=== PATIENT | female | born 1990 | race Caucasian/White ===

== ENCOUNTER 2019-10-28 21:13 | Emergency (ER) | payer MEDICAID ==
[2019-10-28 21:32] VITALS: BP 107/68
--- NOTE | 2019-10-28 21:49 | Event Note ---
ED Screening Note Date of service: 10/28/19 Time: 21:47 ED Screening Note: Pt complains of left lower abdominal pain and wound infection states had C section 10/18/19 with [employer] maine removed from wound yesterday states purulent drainage, body aches, and chills today This initial assessment/diagnostic orders/clinical plan/treatment(s) is/are subject to change based on patients health status, clinical progression and re- assessment by fellow clinical providers in the ED. Further treatment and workup at subsequent clinical providers discretion. Patient/guardian urged not to elope from the ED as their condition may be serious if not clinically assessed and managed. Initial orders include: labs
[2019-10-28 23:14] LABS: Bacteria,Urine 1+ /HPF (Negative); Bilirubin,Urine NEG (Negative); Blood,Urine MOD (Negative); Color,Urine Yellow (Yellow); Mucus,Urine FEW /HPF; Protein,Urine <15 mg/dL mg/dL (Negative); Urobilinogen,Urine < 2.0 mg/dL (<2.0)
[2019-10-28 23:20] LABS: Basophils % (Auto) 0.5 % (0.0-1.8); Eosinophils # (Auto) 0.4 K/mm3 (0.0-0.4); Eosinophils % (Auto) 6.8 % (0.0-4.3); Hematocrit 31.2 % (30.3-42.9); Hemoglobin 10.2 gm/dl (10.1-14.3); Lymphocytes # (Auto) 2.1 K/mm3 (1.2-5.4); Lymphocytes % (Auto) 38.2 % (13.4-35.0); Mean Corpuscular HGB Conc 33 % (30-34); Mean Corpuscular Volume 83 fl (79-97); Monocytes # (Auto) 0.6 K/mm3 (0.0-0.8); Monocytes % (Auto) 10.6 % (0.0-7.3); Platelet Count 482 K/mm3 (140-440); Red Blood Count 3.78 M/mm3 (3.65-5.03); Red Cell Distribution Width 14.8 % (13.2-15.2)
[2019-10-28 23:43] LABS: Albumin 3.9 g/dL (3.9-5); BUN/Creatinine Ratio 20; Blood Urea Nitrogen 12 mg/dL (7-17); Calcium 9.5 mg/dL (8.4-10.2); Hemolysis Index 133
[2019-10-28 23:50] LABS: Alanine Aminotransferase 9 units/L (7-56)
--- NOTE | 2019-10-29 00:28 | Emergency Department Report ---
ED Abdominal Pain HPI - General Chief Complaint: Laceration/Recheck/Suture Stated Complaint: POST C SECTION COMP Time Seen by Provider: 10/28/19 21:45 Source: patient Mode of arrival: Ambulatory Limitations: No Limitations - History of Present Illness Initial Comments: Patient is a 29-year-old female that presents emergency room with complaints of lower abdominal pain. Patient states she had a on October 18, 2019 and had her maine removed yesterday. Patient states after maine removed the left side of her incision site opened up and pus started draining. Patient states the pain is a burning pain. Patient states is an 8 out of 10. They states it is better with rest and worse with movement and palpation. Patient denies fever and chills. Patient states her abdominal pain is just at the surgical site. MD Complaint: abdominal pain -: Sudden Location: suprapubic Radiation: none Migration to: no migration Severity: severe Severity scale (0 -10): 8 Quality: burning Consistency: constant Improves With: rest Worsens With: movement, other Context: recent surgery/procedure Associated Symptoms: denies other symptoms. denies: nausea, vomiting, diarrhea, fever, chills, constipation, dysuria, hematemesis, hematochezia, melena, hematuria, anorexia - Related Data Previous Rx's Medication Instructions Recorded Last Taken Type Vits96/Iron Fum/Folic 1 each PO QDAY #30 tablet 11/19/13 03/27/14 23:00 Rx [ Tablet] 1 tab Docusate Sodium [Colace CAP] 100 mg PO BID PRN #60 capsule 04/14/15 Unknown Rx Ibuprofen [Motrin 600 MG tab] 600 mg PO Q6H PRN #50 tablet 04/14/15 Unknown Rx Ferrous Sulfate [Feosol 325 MG tab] 325 mg PO BID #60 tablet 10/20/19 Unknown Rx HYDROcodone/APAP 5-325 [[place] 1 each PO Q6H PRN #30 tablet 10/20/19 Unknown Rx 5-325 mg TAB] Ibuprofen [Motrin 800 MG tab] 800 mg PO Q6H PRN #30 tablet 10/20/19 Unknown Rx Sulfamethoxazole/Trimethoprim 1 each PO BID 10 Days #20 tablet 10/29/19 Unknown Rx [Bactrim DS TAB] cephALEXin [Keflex] 500 mg PO Q8HR 10 Days capsule 10/29/19 Unknown Rx oxyCODONE /ACETAMINOPHEN [Percocet 1 tab PO Q4H PRN #10 tablet 10/29/19 Unknown Rx 5/325 mg] Allergies Allergy/AdvReac Type Severity Reaction Status Date / Time No Known Allergies Allergy Verified 04/12/15 10:25 ED Review of Systems ROS: Stated complaint: POST C SECTION COMP Other details as noted in HPI Constitutional: denies: chills, fever Eyes: denies: eye pain, eye discharge, vision change ENT: denies: ear pain, throat pain Respiratory: denies: cough, shortness of breath, wheezing Cardiovascular: denies: chest pain, palpitations Endocrine: no symptoms reported Gastrointestinal: abdominal pain. denies: nausea, diarrhea Genitourinary: denies: urgency, dysuria, discharge Musculoskeletal: denies: back pain, joint swelling, arthralgia Skin: denies: rash, lesions Neurological: denies: headache, weakness, paresthesias Psychiatric: denies: anxiety, depression Hematological/Lymphatic: denies: easy bleeding, easy bruising ED Past Medical Hx - Past Medical History Previous Medical History?: No Hx Hypertension: No Hx Congestive Heart Failure: No Hx Diabetes: No Hx Deep Vein Thrombosis: No Hx Renal Disease: No Hx Sickle Cell Disease: No Hx Seizures: No Hx Asthma: No Hx COPD: No Hx HIV: No Additional medical history: none - Surgical History Past Surgical History?: Yes Additional Surgical History: Csection X3 - Family History Family history: no significant - Social History Smoking Status: Never Smoker Substance Use Type: None - Medications Home Medications: Home Medications Medication Instructions Recorded Confirmed Last Taken Type Vits96/Iron Fum/Folic 1 each PO QDAY #30 tablet 11/19/13 04/12/15 03/27/14 23:00 Rx [ Tablet] 1 tab Docusate Sodium [Colace CAP] 100 mg PO BID PRN #60 capsule 04/14/15 Unknown Rx Ibuprofen [Motrin 600 MG tab] 600 mg PO Q6H PRN #50 tablet 04/14/15 Unknown Rx Ferrous Sulfate [Feosol 325 MG tab] 325 mg PO BID #60 tablet 10/20/19 Unknown Rx HYDROcodone/APAP 5-325 [[place] 1 each PO Q6H PRN #30 tablet 10/20/19 Unknown Rx 5-325 mg TAB] Ibuprofen [Motrin 800 MG tab] 800 mg PO Q6H PRN #30 tablet 10/20/19 Unknown Rx Sulfamethoxazole/Trimethoprim 1 each PO BID 10 Days #20 tablet 10/29/19 Unknown Rx [Bactrim DS TAB] cephALEXin [Keflex] 500 mg PO Q8HR 10 Days capsule 10/29/19 Unknown Rx oxyCODONE /ACETAMINOPHEN [Percocet 1 tab PO Q4H PRN #10 tablet 10/29/19 Unknown Rx 5/325 mg] ED Physical Exam - General Limitations: No Limitations General appearance: alert, in no apparent distress - Head Head exam: Present: atraumatic, normocephalic - Eye Eye exam: Present: normal appearance - ENT ENT exam: Present: mucous membranes moist - Neck Neck exam: Present: normal inspection - Respiratory Respiratory exam: Present: normal lung sounds bilaterally. Absent: respiratory distress - Cardiovascular Cardiovascular Exam: Present: regular rate, normal rhythm. Absent: systolic murmur, diastolic murmur, rubs, gallop - GI/Abdominal GI/Abdominal exam: Present: soft, tenderness (Suprapubic tenderness noticed. Tenderness noted to the left aspect of her site. Open area noted with a purulent discharge.), normal bowel sounds. Absent: distended, guarding, rebou nd - Rectal Rectal exam: Present: deferred - Extremities Exam Extremities exam: Present: normal inspection - Back Exam Back exam: Present: normal inspection - Neurological Exam Neurological exam: Present: alert, oriented X3 - Psychiatric Psychiatric exam: Present: normal affect, normal mood - Skin Skin exam: Present: warm, dry, intact, normal color. Absent: rash ED Course Vital Signs 10/28/19 21:30 Temperature 98.9 F Pulse Rate 86 Respiratory 18 Rate Blood Pressure 107/68 O2 Sat by Pulse 98 Oximetry - Reevaluation(s) Reevaluation #1: I discussed all results and clinical findings with patient. I discussed plan of care with patient. Patient agrees with plan of care. Patient is stable for discharge. Patient will be discharged home. Patient given discharge instructions. Patient voiced understanding of discharge instructions. 10/29/19 01:06 - Consultations Consultation #1: I discussed case with the patient's STORE ASSISTANT, Dr. Brown. Dr. Brown recommends oral antibiotics and discharged home. 10/29/19 01:04 ED Medical Decision Making - Lab Data Result diagrams: 10/28/19 23:04 10/28/19 23:04 - Medical Decision Making Patient is a 29-year-old female that presents emergency room with complaints of site pain. Patient had her maine removed recently and in the left lateral aspect of the site opened up. Site is tender to touch and patient describes it as a burning pain. Clinically I believe this patient is having a dehiscing of the wound and does not have an active infection. However I discussed the case with the patient's personal STORE ASSISTANT, Dr. Brown and she recommends oral antibiotics and discharge home. Patient's labs are essentially unremarkable. - Differential Diagnosis Cellulitis, surgical wound infection, dehiscing Critical care attestation.: If time is entered above; I have spent that time in minutes in the direct care of this critically ill patient, excluding procedure time. ED Disposition Clinical Impression: Wound dehiscence, , section wound complications Abdominal pain Qualifiers: Abdominal location: lower abdomen, unspecified Qualified Code(s): R10.30 - Lower abdominal pain, unspecified Disposition: DC-01 TO HOME OR SELFCARE Is pt being admited?: No Does the pt Need Aspirin: No Condition: Stable Instructions: Surgical Site Infections (ED), Wound Healing and Your Diet (ED), Wound Dehiscence (ED) Additional Instructions: Patient to follow-up with primary care in 2 to 3 days. Patient to follow-up with STORE ASSISTANT in 2 to 3 days. Patient to rest. Patient to increase water. Patient to avoid strenuous exercise or heavy lifting until cleared by STORE ASSISTANT. Patient to take Tylenol or ibuprofen as needed for pain. Patient to take meds as directed. Patient to return to the ER if condition worsens, changes or new symptoms arise. Prescriptions: Sulfamethoxazole/Trimethoprim [Bactrim DS TAB] 1 each PO BID 10 Days #20 tablet cephALEXin [Keflex] 500 mg PO Q8HR 10 Days capsule oxyCODONE /ACETAMINOPHEN [Percocet 5/325 mg] 1 tab PO Q4H PRN #10 tablet PRN Reason: Pain , Severe (7-10) Referrals: TIANNA BROWN MD [Staff Physician] - 2-3 Days FOLEY ELIEZER TORIBIO MD [Primary Care Provider] - 2-3 Days Time of Disposition: 01:18
[2019-10-29] MEDS ORDERED: CLINDAMYCIN 150 MG/ML VIAL 6 ML IM ONE (01:14)
== END 2019-10-29 02:38 | disposition home or self-care (01) ==
LOC: ED 21:13
DX: O90.89 Other complications of the puerperium, not elsewhere classified (principal); R10.30 Lower abdominal pain, unspecified; Z79.899 Other long term (current) drug therapy; Z98.890 Other specified postprocedural states
CPT/HCPCS: 36415; 80053; 81001; 83690; 85025; 87086; 96372; 99283

== ENCOUNTER 2021-03-10 17:17 | Emergency (ER) | payer MEDICAID ==
[2021-03-10 17:45] VITALS: BP 117/77
[2021-03-10 20:24] LABS: Basophils % (Auto) 0.5 % (0.0-1.8); Eosinophils # (Auto) 0.1 K/mm3 (0.0-0.4); Eosinophils % (Auto) 2.1 % (0.0-4.3); Hemoglobin 12.6 gm/dl (10.1-14.3); Lymphocytes # (Auto) 2.1 K/mm3 (1.2-5.4); Lymphocytes % (Auto) 30.7 % (13.4-35.0); Monocytes # (Auto) 0.5 K/mm3 (0.0-0.8)
[2021-03-10 20:42] LABS: Alanine Aminotransferase 9 units/L (7-56); Albumin 3.8 g/dL (3.9-5); Blood Urea Nitrogen 8 mg/dL (7-17); Calcium 9.6 mg/dL (8.4-10.2); Hemolysis Index 10
[2021-03-10 20:45] LABS: BUN/Creatinine Ratio 16
[2021-03-10 20:49] LABS: Hematocrit 38.5 % (30.3-42.9); Mean Corpuscular HGB Conc 33 % (30-34); Mean Corpuscular Volume 85 fl (79-97); Platelet Count 310 K/mm3 (140-440); Red Blood Count 4.53 M/mm3 (3.65-5.03); Red Cell Distribution Width 14.5 % (13.2-15.2)
[2021-03-10] MEDS ORDERED: LIDOCAINE 2% UROJECT 10 ML JELLY UR ONE ×2 (21:08→23:20)
[2021-03-10 21:59] LABS: Bacteria,Urine 1+ /HPF (Negative); Bilirubin,Urine NEG (Negative); Blood,Urine MOD (Negative); Color,Urine Yellow (Yellow); Hyaline Casts,Urine 1 /LPF; Mucus,Urine FEW /HPF; Protein,Urine <15 mg/dL mg/dL (Negative); Urobilinogen,Urine < 2.0 mg/dL (<2.0)
--- NOTE | 2021-03-11 00:19 | Emergency Department Report ---
ED General Adult HPI - General Chief complaint: GI Bleed Stated complaint: BLOOD IN STOOL Source: patient, family Mode of arrival: Ambulatory Limitations: Language Barrier - History of Present Illness Initial comments: Patient is a 31-year-old [place] female with no past medical history who presents to the ED with complaint of acute onset persistent severe rectal pain, rectal bleeding with each bowel movement and a sensation of soft tissue swelling on her rectum for the last 1 week. Patient states that each time she has the urge to have a bowel movement she is scared because of rectal pain. Patient admits to having hard stools after pushing for a long time. Patient denies nausea, vomiting, abdominal pain, lightheadedness, dizziness, syncope, vaginal bleeding, vaginal discharge, chest pain, shortness of breath, fever and chills or traumatic injury. MD Complaint: Rectal pain; rectal bleeding; suspected hemorrhoids -: Sudden, week(s) (1) Location: buttocks (rectal) Radiation: non-radiation Severity scale (0 -10): 7 Quality: aching, sharp Consistency: constant Improves with: none Worsens with: other (Bowel movement) Associated Symptoms: denies other symptoms. denies: confusion, chest pain, cough, diaphoresis, fever/chills, headaches, malaise, nausea/vomiting, rash, seizure, shortness of breath, syncope Treatments Prior to Arrival: none - Related Data Previous Rx's Medication Instructions Recorded Last Taken Type Vits96/Iron Fum/Folic 1 each PO QDAY #30 tablet 11/19/13 03/27/14 23:00 Rx [ Tablet] 1 tab Docusate Sodium [Colace CAP] 100 mg PO BID PRN #60 capsule 04/14/15 Unknown Rx Ibuprofen [Motrin 600 MG tab] 600 mg PO Q6H PRN #50 tablet 04/14/15 Unknown Rx Ferrous Sulfate [Feosol 325 MG tab] 325 mg PO BID #60 tablet 10/20/19 Unknown Rx HYDROcodone/APAP 5-325 [[place] 1 each PO Q6H PRN #30 tablet 10/20/19 Unknown Rx 5-325 mg TAB] Sulfamethoxazole/Trimethoprim 1 each PO BID 10 Days #20 tablet 10/29/19 Unknown Rx [Bactrim DS TAB] cephALEXin [Keflex] 500 mg PO Q8HR 10 Days capsule 02/16/20 Unknown Rx oxyCODONE /ACETAMINOPHEN [Percocet 1 tab PO Q4H PRN #10 tablet 10/29/19 Unknown Rx 5/325 mg] Dibucaine 1% [Nupercainal] [address] TID PRN #1 tube 03/11/21 Unknown Rx Hydrocortisone [Anusol-Hc 2.5% TOP 30 gm RC Q12H PRN #1 cream..g. 03/11/21 Unknown Rx CREAM] Ibuprofen [Motrin 800 MG tab] 800 mg PO Q6H PRN #30 tablet 03/11/21 Unknown Rx Allergies Allergy/AdvReac Type Severity Reaction Status Date / Time No Known Allergies Allergy Verified 03/10/21 17:44 ED Review of Systems ROS: Stated complaint: BLOOD IN STOOL Other details as noted in HPI Constitutional: denies: chills, fever Eyes: denies: eye pain, eye discharge, vision change ENT: denies: ear pain, throat pain Respiratory: denies: cough, shortness of breath, wheezing Cardiovascular: denies: chest pain, palpitations Endocrine: no symptoms reported Gastrointestinal: other (Rectal pain and rectal bleeding). denies: abdominal pain, nausea, diarrhea Genitourinary: denies: urgency, dysuria, discharge Musculoskeletal: denies: back pain, joint swelling, arthralgia Skin: denies: rash, lesions Neurological: denies: headache, weakness, paresthesias Psychiatric: denies: anxiety, depression Hematological/Lymphatic: denies: easy bleeding, easy bruising ED Past Medical Hx - Past Medical History Hx Hypertension: No Hx Congestive Heart Failure: No Hx Diabetes: No Hx Deep Vein Thrombosis: No Hx Renal Disease: No Hx Sickle Cell Disease: No Hx Seizures: No Hx Asthma: No Hx COPD: No Hx HIV: No Additional medical history: none - Surgical History Additional Surgical History: Csection X3 - Social History Smoking Status: Never Smoker Substance Use Type: None - Medications Home Medications: Home Medications Medication Instructions Recorded Confirmed Last Taken Type Vits96/Iron Fum/Folic 1 each PO QDAY #30 tablet 11/19/13 04/12/15 03/27/14 23:00 Rx [ Tablet] 1 tab Docusate Sodium [Colace CAP] 100 mg PO BID PRN #60 capsule 04/14/15 Unknown Rx Ibuprofen [Motrin 600 MG tab] 600 mg PO Q6H PRN #50 tablet 04/14/15 Unknown Rx Ferrous Sulfate [Feosol 325 MG tab] 325 mg PO BID #60 tablet 10/20/19 Unknown Rx HYDROcodone/APAP 5-325 [[place] 1 each PO Q6H PRN #30 tablet 10/20/19 Unknown Rx 5-325 mg TAB] Sulfamethoxazole/Trimethoprim 1 each PO BID 10 Days #20 tablet 10/29/19 Unknown Rx [Bactrim DS TAB] cephALEXin [Keflex] 500 mg PO Q8HR 10 Days capsule 10/29/19 Unknown Rx oxyCODONE /ACETAMINOPHEN [Percocet 1 tab PO Q4H PRN #10 tablet 10/29/19 Unknown Rx 5/325 mg] Dibucaine 1% [Nupercainal] [address] TID PRN #1 tube 03/11/21 Unknown Rx Hydrocortisone [Anusol-Hc 2.5% TOP 30 gm RC Q12H PRN #1 cream..g. 03/11/21 Unknown Rx CREAM] Ibuprofen [Motrin 800 MG tab] 800 mg PO Q6H PRN #30 tablet 03/11/21 Unknown Rx ED Physical Exam - General Limitations: Language Barrier General appearance: alert, in no apparent distress - Head Head exam: Present: atraumatic, normocephalic, normal inspection - Eye Eye exam: Present: normal appearance, PERRL, EOMI Pupils: Present: normal accommodation - ENT ENT exam: Present: normal exam, normal orophraynx, mucous membranes moist, TM's normal bilaterally, normal external ear exam - Neck Neck exam: Present: normal inspection, full ROM - Respiratory Respiratory exam: Present: normal lung sounds bilaterally. Absent: respiratory distress, wheezes, rales, rhonchi, chest wall tenderness, accessory muscle use, decreased breath sounds, prolonged expiratory, other - Cardiovascular Cardiovascular Exam: Present: regular rate, normal rhythm, normal heart sounds. Absent: systolic murmur, diastolic murmur, rubs, gallop - GI/Abdominal GI/Abdominal exam: Present: soft, normal bowel sounds. Absent: tenderness, guar ding, rebound, organomegaly, mass, bruit - Rectal Rectal exam: Present: normal rectal tone, hemorrhoids (Tender external hemorrhoids), tenderness (Palpable external rectal tenderness due to severely tender external hemorrhoids), other (Female ED air conditioning technician housesmith Ms. Kolb present during the rectal exam). Absent: black stool, bloody stool, fecal impaction - Extremities Exam Extremities exam: Present: normal inspection, full ROM, normal capillary refill - Back Exam Back exam: Present: normal inspection, full ROM. Absent: tenderness, CVA tenderness (R), CVA tenderness (L), muscle spasm, paraspinal tenderness, vertebral tenderness - Neurological Exam Neurological exam: Present: alert, oriented X3, CN II-XII intact, normal gait, reflexes normal - Psychiatric Psychiatric exam: Present: normal affect, normal mood - Skin Skin exam: Present: warm, dry, intact, normal color. Absent: rash ED Course Vital Signs 03/10/21 17:44 Temperature 98.6 F Pulse Rate 73 Respiratory 20 Rate Blood Pressure 117/77 [Left] O2 Sat by Pulse 100 Oximetry ED Medical Decision Making - Lab Data Result diagrams: 03/10/21 20:08 03/10/21 20:08 - Medical Decision Making This is a 31-year-old [place] female with no past medical history who presents to the ED with complaint of acute onset persistent severe rectal pain, rectal bleeding with each bowel movement and a sensation of soft tissue swelling on her rectum for the last 1 week. Patient states that each time she has the urge to have a bowel movement she is scared because of rectal pain. Patient admits to having hard stools after pushing for a long time. In the ED, patient is alert and oriented x3 and is not in any distress. Patient was treated for pain with topical Urojet ointment applied on the rectal vault. Physical exam re veals severely tender moderate external hemorrhoid. On reevaluation, patient's pain is well controlled medications. Patient was discharged home on medications and advised to increase water intake and high-fiber diet, use sitz bath to relieve her symptoms. Patient was advised to return to the ED immediately if symptoms get worse, otherwise follow-up with her primary care physician in 5 to 7 days for reevaluation. - Differential Diagnosis Hemorrhoids; constipation; anal tears; anal fissures Critical care attestation.: If time is entered above; I have spent that time in minutes in the direct care of this critically ill patient, excluding procedure time. ED Disposition Clinical Impression: Anal or rectal pain, External hemorrhoids Disposition: TO HOME OR SELFCARE Is pt being admited?: No Does the pt Need Aspirin: No Condition: Stable Instructions: Hemorrhoids, [id number] Additional Instructions: All lab test results were reviewed and are all nonactionable. Your symptoms are due to external hemorrhoids that are painful especially with bowel movements. Therefore take medications as advised, drink plenty of fluids, increase high- fiber in your diet, follow-up with your primary care physician in 3 to 5 days for reevaluation. Return to the ED immediately if symptoms get worse. Prescriptions: Hydrocortisone [Anusol-Hc 2.5% TOP CREAM] 30 gm RC Q12H PRN #1 cream..g. PRN Reason: Hemorrhoids Ibuprofen [Motrin 800 MG tab] 800 mg PO Q6H PRN #30 tablet PRN Reason: Pain, Mild (1-3) Dibucaine 1% [Nupercainal] [address] TID PRN #1 tube PRN Reason: Rectal pain Referrals: [facility] [Provider Group] - 3-5 Days Time of Disposition: 00:19 Print Language: KYRGYZ
== END 2021-03-11 00:35 | disposition home or self-care (01) ==
LOC: ED 17:17
DX: K64.4 Residual hemorrhoidal skin tags (principal); K62.89 Other specified diseases of anus and rectum; Z79.899 Other long term (current) drug therapy; Z98.890 Other specified postprocedural states
CPT/HCPCS: 36415; 80053; 81001; 83690; 84703; 85025

== ENCOUNTER 2021-12-01 12:36 | Emergency (ER) | payer MEDICAID ==
--- NOTE | 2021-12-01 16:15 | Emergency Department Report ---
ED General Adult HPI - General Chief complaint: Nausea/Vomiting/Diarrhea Stated complaint: NEED FLUIDS/NAUSEA Time Seen by Provider: 12/01/21 15:45 Source: patient Mode of arrival: Ambulatory Limitations: No Limitations - Related Data Previous Rx's Medication Instructions Recorded Last Taken Type Vits96/Iron Fum/Folic 1 each PO QDAY #30 tablet 11/19/13 03/27/14 23:00 Rx [ Tablet] 1 tab Docusate Sodium [Colace CAP] 100 mg PO BID PRN #60 capsule 04/14/15 Unknown Rx Ibuprofen [Motrin 600 MG tab] 600 mg PO Q6H PRN #50 tablet 04/14/15 Unknown Rx Ferrous Sulfate [Feosol 325 MG tab] 325 mg PO BID #60 tablet 10/20/19 Unknown Rx HYDROcodone/APAP 5-325 [[place] 1 each PO Q6H PRN #30 tablet 10/20/19 Unknown Rx 5-325 mg TAB] Sulfamethoxazole/Trimethoprim 1 each PO BID 10 Days #20 tablet 10/29/19 Unknown Rx [Bactrim DS TAB] cephALEXin [Keflex] 500 mg PO Q8HR 10 Days capsule 10/29/19 Unknown Rx oxyCODONE /ACETAMINOPHEN [Percocet 1 tab PO Q4H PRN #10 tablet 10/29/19 Unknown Rx 5/325 mg] Dibucaine 1% [Nupercainal] 1 applicatio [place] TID PRN #1 tube 03/11/21 Unknown Rx Hydrocortisone [Anusol-Hc 2.5% TOP 30 gm RC Q12H PRN #1 cream..g. 03/11/21 Unknown Rx CREAM] Ibuprofen [Motrin 800 MG tab] 800 mg PO Q6H PRN #30 tablet 03/11/21 Unknown Rx Allergies Allergy/AdvReac Type Severity Reaction Status Date / Time No Known Allergies Allergy Verified 03/10/21 17:44 ED Review of Systems ROS: Stated complaint: NEED FLUIDS/NAUSEA Other details as noted in HPI ED Past Medical Hx - Past Medical History Hx Hypertension: No Hx Congestive Heart Failure: No Hx Diabetes: No Hx Deep Vein Thrombosis: No Hx Renal Disease: No Hx Sickle Cell Disease: No Hx Seizures: No Hx Asthma: No Hx COPD: No Hx HIV: No Additional medical history: none - Surgical History Additional Surgical History: Csection X3 - Social History Smoking Status: Never Smoker Substance Use Type: None - Medications Home Medications: Home Medications Medication Instructions Recorded Confirmed Last Taken Type Vits96/Iron Fum/Folic 1 each PO QDAY #30 tablet 11/19/13 04/12/15 03/27/14 23:00 Rx [ Tablet] 1 tab Docusate Sodium [Colace CAP] 100 mg PO BID PRN #60 capsule 04/14/15 Unknown Rx Ibuprofen [Motrin 600 MG tab] 600 mg PO Q6H PRN #50 tablet 04/14/15 Unknown Rx Ferrous Sulfate [Feosol 325 MG tab] 325 mg PO BID #60 tablet 10/20/19 Unknown Rx HYDROcodone/APAP 5-325 [[place] 1 each PO Q6H PRN #30 tablet 10/20/19 Unknown Rx 5-325 mg TAB] Sulfamethoxazole/Trimethoprim 1 each PO BID 10 Days #20 tablet 10/29/19 Unknown Rx [Bactrim DS TAB] cephALEXin [Keflex] 500 mg PO Q8HR 10 Days capsule 10/29/19 Unknown Rx oxyCODONE /ACETAMINOPHEN [Percocet 1 tab PO Q4H PRN #10 tablet 10/29/19 Unknown Rx 5/325 mg] Dibucaine 1% [Nupercainal] 1 applicatio [place] TID PRN #1 tube 03/11/21 Unknown Rx Hydrocortisone [Anusol-Hc 2.5% TOP 30 gm RC Q12H PRN #1 cream..g. 03/11/21 Unknown Rx CREAM] Ibuprofen [Motrin 800 MG tab] 800 mg PO Q6H PRN #30 tablet 03/11/21 Unknown Rx ED Physical Exam - General Limitations: No Limitations ED Course Vital Signs 12/01/21 13:18 Temperature 97.9 F Pulse Rate 85 Respiratory 17 Rate Blood Pressure 98/50 O2 Sat by Pulse 99 Oximetry Critical care attestation.: If time is entered above; I have spent that time in minutes in the direct care of this critically ill patient, excluding procedure time. ED Disposition Condition: Stable Referrals: PRIMARY CARE, [Primary Care Provider] - 3-5 Days
--- NOTE | 2021-12-01 16:24 | Event Note ---
Date: 12/01/21 31-year-old female presenting with a complaint of painless dehydration. No vomiting. Reports drinking tea earlier on this morning
--- NOTE | 2021-12-01 16:39 | Emergency Department Report ---
ED General Adult HPI - General Chief complaint: Nausea/Vomiting/Diarrhea Stated complaint: Dehydration Time Seen by Provider: 12/01/21 15:45 Source: patient, RN notes reviewed, old records reviewed Mode of arrival: Ambulatory Limitations: Language Barrier - History of Present Illness Initial comments: Pushto human resource manager: [id number] The patient is a 31-year-old female who is 8, para 5, LMP September 09, who presents to the ER today with complaints of painless sensation of dehydration. She had an ultrasound last month which she reports is unremar kable. The patient drank tea today without difficulty. She is taking vitamins without difficulty. She denies physical pain. She denies dysuria. She reports that she was referred to the emergency room by her PROOFREADER at [facility] with a concern of possible dehydration Today, she denies physical pain, nausea, vomiting and diarrhea. Improves with: none Worsens with: none Associated Symptoms: denies other symptoms - Related Data Previous Rx's Medication Instructions Recorded Last Taken Type Vits96/Iron Fum/Folic 1 each PO QDAY #30 tablet 11/19/13 03/27/14 23:00 Rx [ Tablet] 1 tab Docusate Sodium [Colace CAP] 100 mg PO BID PRN #60 capsule 04/14/15 Unknown Rx Ferrous Sulfate [Feosol 325 MG tab] 325 mg PO BID #60 tablet 10/20/19 Unknown Rx cephALEXin [Keflex] 500 mg PO Q8HR 10 Days capsule 10/29/19 Unknown Rx Hydrocortisone [Anusol-Hc 2.5% TOP 30 gm RC Q12H PRN #1 cream..g. 03/11/21 Unknown Rx CREAM] Doxylamine Succinate/Vit B6 1 each PO QHS PRN #30 tablet. 12/01/21 Unknown Rx [David Snyder 10-10 mg Tablet] Cari Root [Cari] 250 mg PO QID PRN #30 capsule 12/01/21 Unknown Rx Vit-Fe Fumar-FA [ 1 tab PO QDAY #30 tablet 12/01/21 Unknown Rx Vitamin] Allergies Allergy/AdvReac Type Severity Reaction Status Date / Time No Known Allergies Allergy Verified 03/10/21 17:44 ED Review of Systems ROS: Stated complaint: NEED FLUIDS/NAUSEA Other details as noted in HPI Constitutional: denies: fever Respiratory: denies: cough Cardiovascular: denies: chest pain Gastrointestinal: denies: abdominal pain Genitourinary: denies: urgency, dysuria, frequency Neurological: weakness. denies: headache ED Past Medical Hx - Past Medical History Hx Hypertension: No Hx Congestive Heart Failure: No Hx Diabetes: No Hx Deep Vein Thrombosis: No Hx Renal Disease: No Hx Sickle Cell Disease: No Hx Seizures: No Hx Asthma: No Hx COPD: No Hx HIV: No Additional medical history: none - Surgical History Additional Surgical History: Csection X3 - Social History Smoking Status: Never Smoker Substance Use Type: None - Medications Home Medications: Home Medications Medication Instructions Recorded Confirmed Last Taken Type Vits96/Iron Fum/Folic 1 each PO QDAY #30 tablet 11/19/13 04/12/15 03/27/14 23:00 Rx [ Tablet] 1 tab Docusate Sodium [Colace CAP] 100 mg PO BID PRN #60 capsule 04/14/15 Unknown Rx Ferrous Sulfate [Feosol 325 MG tab] 325 mg PO BID #60 tablet 10/20/19 Unknown Rx cephALEXin [Keflex] 500 mg PO Q8HR 10 Days capsule 10/29/19 Unknown Rx Hydrocortisone [Anusol-Hc 2.5% TOP 30 gm RC Q12H PRN #1 cream..g. 03/11/21 Unknown Rx CREAM] Doxylamine Succinate/Vit B6 1 each PO QHS PRN #30 tablet. 12/01/21 Unknown Rx [David Snyder 10-10 mg Tablet] Cari Root [Cari] 250 mg PO QID PRN #30 capsule 12/01/21 Unknown Rx Vit-Fe Fumar-FA [ 1 tab PO QDAY #30 tablet 12/01/21 Unknown Rx Vitamin] ED Physical Exam - General Limitations: No Limitations, Language Barrier, Other (Chaperoned by Loan Kinsey) General appearance: alert, in no apparent distress - Head Head exam: Present: atraumatic, normocephalic - Eye Eye exam: Present: normal appearance, EOMI. Absent: nystagmus - ENT ENT exam: Present: normal exam, normal orophraynx, mucous membranes moist, normal external ear exam - Neck Neck exam: Present: normal inspection, full ROM. Absent: tenderness, meningismus - Respiratory Respiratory exam: Present: normal lung sounds bilaterally. Absent: respiratory distress, wheezes, rales, rhonchi, stridor, decreased breath sounds - Cardiovascular Cardiovascular Exam: Present: regular rate, normal rhythm, normal heart sounds. Absent: bradycardia, tachycardia, irregular rhythm, systolic murmur, diastolic murmur, rubs, gallop - GI/Abdominal GI/Abdominal exam: Present: soft. Absent: distended, tenderness, guarding, rebound, rigid, pulsatile mass - Extremities Exam Extremities exam: Present: normal inspection, full ROM, other (2+ pulses noted in the bilateral upper and lower extremities. There is no palpable cord. negative Homans sign. Muscular compartments are soft. The pelvis is stable.). Absent: pedal edema, calf tenderness - Back Exam Back exam: Present: normal inspection, full ROM. Absent: tenderness, CVA tenderness (R), CVA tenderness (L), paraspinal tenderness, vertebral tenderness - Neurological Exam Neurological exam: Present: alert, oriented X3, normal gait, other (No facial droop. Tongue midline. Extraocular movements intact bilaterally. Facial sensation intact to light touch in V1, V2, V3 distribution bilaterally. 5 and a 5 strength in 4 extremities. Sensation intact to light touch in 4 extremities.). Absent: motor sensory deficit - Psychiatric Psychiatric exam: Present: normal affect, normal mood - Skin Skin exam: Present: warm, dry, intact, normal color. Absent: rash ED Course Vital Signs 12/01/21 13:18 Temperature 97.9 F Pulse Rate 85 Respiratory 17 Rate Blood Pressure 98/50 O2 Sat by Pulse 99 Oximetry - Reevaluation(s) Reevaluation #1: 12/01/21 17:00 Differential diagnosis, including but not limited to: Dehydration, electrolyte derangement, Assessment and plan: 31-year-old female, who is afebrile, with reassuring vital signs, with no physical pain, soft benign abdomen, ambulatory with a steady gait, GCS of 15, presenting to the ER today with a complaint of feeling dehydrated. She is not actively vomiting. She drank tea this morning without difficulty. Bedside [id number] transabdominal ultrasound confirms intrauterine , heart rate, spontaneous movement, with no obvious signs of bleeding. Patient provided consent to have a physical exam with female spooling operator present. She is not actively vomiting. We can check a basic metabolic panel and magnesium, she can continue vitamins, take as needed cari, as needed Diclegis, and follow-up with outpat ient PROOFREADER. Advance diet as tolerated, bread, rice, apples and toast She denies irritative and obstructive urinary symptoms 12/01/21 17:01 12/01/21 19:00 No active vomiting. Patient resting comfortably. Laboratory studies are essentially unremarkable. Patient may follow-up with her outpatient community service specialist ED Medical Decision Making - Lab Data Result diagrams: 12/01/21 17:10 Vital Signs 12/01/21 13:18 Temperature 97.9 F Pulse Rate 85 Respiratory 17 Rate Blood Pressure 98/50 O2 Sat by Pulse 99 Oximetry Lab Results 12/01/21 12/01/21 Range/Units 13:20 17:10 Sodium 134 L (137-145) mmol/L Potassium 4.4 (3.6-5.0) mmol/L Chloride 102.9 (98-107) mmol/L Carbon Dioxide 21 L (22-30) mmol/L Anion Gap 15 mmol/L BUN 9 (7-17) mg/dL Creatinine 0.4 L (0.6-1.2) mg/dL Estimated GFR > 60 ml/min BUN/Creatinine Ratio 23 % Glucose 81 (65-100) mg/dL POC Glucose 91 (70-105) mg/dL Calcium 9.4 (8.4-10.2) mg/dL Magnesium 1.90 (1.7-2.3) mg/dL Critical care attestation.: If time is entered above; I have spent that time in minutes in the direct care of this critically ill patient, excluding procedure time. ED Disposition Clinical Impression: Disposition: 01 HOME / SELF CARE / HOMELESS Is pt being admited?: No Does the pt Need Aspirin: No Condition: Good Additional Instructions: Bedside [id number] transabdominal ultrasound demonstrated intrauterine with spontaneous movements, and heart rate. Advance diet as tolerated. Drink plenty of fluids. Consume gentle food, advance diet, bread, rice, apples and toast. Take the nausea medications as needed, and vitamins as needed and directed. Follow-up with your community service specialist within the next week to continue outpatient care. Please have your PROOFREADER doctor contact the medical records department to obtain copies of laboratory studies to follow-up on nonemergent incidental findings. Please return to the emergency room right away with new pain, worsened pain, migration of pain, projectile vomiting, change in mental status, confusion, inability tolerate liquid feeds, new, worsened or different symptoms not present on the initial emergency room evaluation Prescriptions: Doxylamine Succinate/Vit B6 [David Snyder 10-10 mg Tablet] 1 each PO QHS PRN #30 tablet. PRN Reason: Nausea Cari Root [Cari] 250 mg PO QID PRN #30 capsule PRN Reason: Nausea Vit-Fe Fumar-FA [ Vitamin] 1 tab PO QDAY #30 tablet Referrals: [facility] [Provider Group] - 3-5 Days
[2021-12-01 17:44] LABS: Blood Urea Nitrogen 9 mg/dL (7-17); Calcium 9.4 mg/dL (8.4-10.2); Hemolysis Index 0
[2021-12-01 17:46] LABS: BUN/Creatinine Ratio 23
[2021-12-01 19:16] VITALS: BP 124/69
== END 2021-12-01 19:15 | disposition home or self-care (01) ==
LOC: ED 12:36
DX: O26.891 Other specified pregnancy related conditions, first trimester (principal); E86.0 Dehydration; Z3A.00 Weeks of gestation of pregnancy not specified
CPT/HCPCS: 36415; 80048; 82962; 83735; 99283

== ENCOUNTER 2022-04-25 00:20 | Outpatient (CLI) | payer OTHER, MEDICAID ==
[2022-04-25 00:53] VITALS: BP 108/56
[2022-04-25] MEDS ORDERED: LACTATED RINGERS 500 ML IV ONE (01:15)
--- NOTE | 2022-04-25 02:38 | Ultrasound Report ---
Limited OB ultrasound INDICATION: Leaking fluid FINDINGS: Single live intrauterine patency. HARLEY measures 11 cm and is within normal limits. hea rt rate 145 bpm. IMPRESSION: HARLEY measures 11 cm. heart rate 145 bpm Signer Name: Cuate Paulson MD Signed: 04/25/2022 2:34 AM Workstation Name: [id number]
== END 2022-04-25 02:30 | disposition home or self-care (01) ==
LOC: TRG 00:20 → APU 00:32 → TRG 02:30
PROVIDERS: ATTEND Obstetrics & Gynecology
DX: Z34.93 Encounter for supervision of normal pregnancy, unspecified, third trimester (principal); Z3A.33 33 weeks gestation of pregnancy
CPT/HCPCS: 36415; 76815; 84112

== ENCOUNTER 2022-06-03 08:34 | Inpatient (IN) | payer OTHER, MEDICAID ==
[2022-06-03] MEDS ORDERED: LACTATED RINGERS 2,000 ML ONE ×2 (08:53→09:16)
[2022-06-03] MEDS ORDERED: TERBUTALINE 1 MG/1 ML INJ ONE (09:17)
[2022-06-03 09:37] LABS: Basophils % (Auto) 0.2 % (0.0-1.8); Eosinophils % (Auto) 0.4 % (0.0-4.3); Hematocrit 29.9 % (30.3-42.9); Hemoglobin 10.3 gm/dl (10.1-14.3); Lymphocytes # (Auto) 1.7 K/mm3 (1.2-5.4); Lymphocytes % (Auto) 17.6 % (13.4-35.0); Mean Corpuscular HGB Conc 34 % (30-34); Mean Corpuscular Volume 79 fl (79-97); Monocytes # (Auto) 0.5 K/mm3 (0.0-0.8); Monocytes % (Auto) 5.6 % (0.0-7.3); Platelet Count 327 K/mm3 (140-440); Red Blood Count 3.77 M/mm3 (3.65-5.03); Red Cell Distribution Width 16.6 % (13.2-15.2)
[2022-06-03] MEDS ORDERED: LACTATED RINGERS 1,000 ML IV SCH (09:45)
[2022-06-03] MEDS ORDERED: ceFAZolin/Water 2 GM/20 ML 2 GM/20 ML SYRINGE IV NR ×2 (10:00→12:00)
[2022-06-03] MEDS ORDERED: BICITRA ORAL LIQD 30ML PO SCH (10:00)
[2022-06-03] MEDS ORDERED: METOCLOPRAMIDE 10 MG/2 ML INJ IV SCH (10:00)
[2022-06-03] MEDS ORDERED: OXYTOCIN DRIP 30 UNITS/500 ML BAG IV SCH ×3 (10:00→15:00)
[2022-06-03] MEDS ORDERED: FAMOTIDINE 20 MG/2 ML INJ IV SCH (10:00)
[2022-06-03] MEDS ORDERED: TERBUTALINE 1 MG/1 ML INJ SUB-Q PRN (10:00)
[2022-06-03] MEDS ORDERED: AMPICILLIN/NS 2 GM/100 ML 2 GM/100 ML BAG IV ONE (10:55)
[2022-06-03] MEDS ORDERED: AMPICILLIN/NS 2 GM/100 ML 2 GM/100 ML BAG IV SCH (11:00)
[2022-06-03] MEDS ORDERED: BICITRA ORAL LIQD 30ML PO ONE (11:20)
--- NOTE | 2022-06-03 11:28 | Anesthesia Day of Surgery ---
Anesthesia Day of Surgery - Day of Surgery Patient Examined: Yes Patient H&P Reviewed: Yes Patient is NPO: Yes
--- NOTE | 2022-06-03 11:29 | Anesthesia Consultation ---
Anesthesia Consult and Med Hx Date of service: 06/03/22 - Airway Anesthetic Teeth Evaluation: Poor ROM Head & Neck: Adequate Mental/Hyoid Distance: Adequate Mallampati Class: Class II Intubation Access Assessment: Probably Good - Pulmonary Exam CTA: Yes - Cardiac Exam Cardiac Exam: RRR - Pre-Operative Health Status ASA Pre-Surgery Classification: ASA2 Proposed Anesthetic Plan: Spinal - Pulmonary Hx Smoking: No Hx Asthma: No COPD: No Hx Pneumonia: No - Cardiovascular System Hx Hypertension: No - Central Nervous System Hx Seizures: No Hx Psychiatric Problems: No - Endocrine Hx Renal Disease: No Hx End Stage Renal Disease: No Hx Hypothyroidism: No Hx Hyperthyroidism: No - Hematic Hx Anemia: Yes Hx Sickle Cell Disease: No - Other Systems Hx Alcohol Use: No Hx Substance Use: No - Additional Comments Anesthesia Medical History Comments: csection x 3
--- NOTE | 2022-06-03 11:30 | History and Physical Report ---
History of Present Illness Date of examination: 06/03/22 Date of admission: 06/03/22 Chief complaint: Active labor pains. History of present illness: . 39+1 wks, BRITNEY 06/09/22. x4 prior cesareans. Past History Past Surgical History: section - Obstetrical History Expected Date of Delivery: 06/09/22 Actual Gestation: 39 Week(s) 1 Day(s) : 5 Para: 4 Number of Living Children: 5 (1 set of twins.) Medications and Allergies Allergies Allergy/AdvReac Type Severity Reaction Status Date / Time No Known Allergies Allergy Verified 03/10/21 17:44 Home Medications Medication Instructions Recorded Confirmed Last Taken Type Vits96/Iron Fum/Folic 1 each PO QDAY #30 tablet 11/19/13 04/12/15 03/27/14 23:00 Rx [ Tablet] 1 tab Docusate Sodium [Colace CAP] 100 mg PO BID PRN #60 capsule 04/14/15 Unknown Rx Ferrous Sulfate [Feosol 325 MG tab] 325 mg PO BID #60 tablet 10/20/19 Unknown Rx cephALEXin [Keflex] 500 mg PO Q8HR 10 Days capsule 10/29/19 Unknown Rx Hydrocortisone [Anusol-Hc 2.5% TOP 30 gm RC Q12H PRN #1 cream..g. 03/11/21 Unknown Rx CREAM] Doxylamine Succinate/Vit B6 1 each PO QHS PRN #30 tablet. 12/01/21 Unknown Rx [David Snyder 10-10 mg Tablet] Cari Root [Cari] 250 mg PO QID PRN #30 capsule 12/01/21 Unknown Rx Vit-Fe Fumar-FA [ 1 tab PO QDAY #30 tablet 12/01/21 Unknown Rx Vitamin] Active Meds: Active Medications Citric Acid/Sodium Citrate (Bicitra Oral Liqd 30ml) 30 ml PO ONCE@1000 XAVIER Stop: 06/03/22 18:00 Last Admin: 06/03/22 10:50 Dose: 30 ml Citric Acid/Sodium Citrate (Bicitra Oral Liqd 30ml) 30 ml PO ONCE ONE Stop: 06/03/22 11:21 Famotidine (Famotidine 20 Mg/2 Ml Inj) 20 mg IV ONCE@1000 XAVIER Stop: 06/03/22 18:00 Last Admin: 06/03/22 10:50 Dose: 20 mg Lactated Ringer's (Lactated Ringers) 1,000 mls @ 2,250 mls/hr IV PREOP XAVIER Stop: 06/04/22 10:12 Oxytocin/Sodium Chloride (Pitocin/Ns 30 Unit/500ml) 30 units in 500 mls @ 0 mls/hr IV TITR XAVIER; Protocol Cefazolin Sodium (Ancef/Sterile Water 2 Gm/20 Ml) 2 gm in 20 mls @ 80 mls/hr IV PREOP NR; Protocol Stop: 06/03/22 18:00 Oxytocin/Sodium Chloride (Pitocin/Ns 30 Unit/500ml) 30 units in 500 mls @ 0 mls/hr IV TITR XAVIER; Protocol Cefazolin Sodium (Ancef/Sterile Water 2 Gm/20 Ml) 2 gm in 20 mls @ 80 mls/hr IV PREOP NR; Protocol Metoclopramide HCl (Metoclopramide 10 Mg/2 Ml Inj) 10 mg IV ONCE@1000 XAVIER Stop: 06/03/22 18:00 Last Admin: 06/03/22 10:50 Dose: 10 mg Terbutaline Sulfate (Terbutaline 1 Mg/1 Ml Inj) 0.25 mg SUB-Q ONCE PRN PRN Reason: Hyperstimulation/Hypertonicity Review of Systems All systems: negative Genitourinary: contractions - Vital Signs Vital signs: Vital Signs Pulse Pulse Ox 79 99 06/03/22 08:48 06/03/22 08:48 Temp Pulse Resp BP Pulse Ox 98.3 F 104 H 20 98/60 99 06/03/22 09:12 06/03/22 10:18 06/03/22 09:12 06/03/22 08:52 06/03/22 10:18 - Physical Exam Lungs: Positive: Normal air movement Abdomen: Positive: normal appearance, soft, distention, normal bowel sounds Uterus: Positive: enlarged, normal contour Extremities: Positive: normal Deep Tendon Reflex Grade: Normal +2 - Obstetrical FHR: auscultation normal Cervical Dilatation: 6 Results Result Diagrams: 06/03/22 09:14 Abnormal lab results 06/03/22 Range/Units 09:14 Hct 29.9 L (30.3-42.9) % MCH 27 L (28-32) pg RDW 16.6 H (13.2-15.2) % Seg Neutrophils % 76.2 H (40.0-70.0) % All other labs normal. Assessment and Plan - Patient Problems (1) 39 weeks gestation of Current Visit: Yes Status: Acute (2) Previous delivery affecting Current Visit: Yes Status: Acute (3) Peritoneal adhesions Current Visit: Yes Status: Acute (4) Request for sterilization Current Visit: Yes Status: Acute Plan to address problem: For 5th with bilateral salpingectomy.
[2022-06-03] MEDS ORDERED: BUPIVACAINE/PF (0.5%) 5 MG/1 ML 30 ML VIAL INFILTRATI ONE (11:32)
[2022-06-03] MEDS ORDERED: SODIUM CHLORIDE 0.9% IRR 1,500 ML BOTTLE IR ONE (11:37)
[2022-06-03] MEDS ORDERED: WATER FOR IRRIG STERILE 1,500 ML BOTTLE IR ONE (11:37)
[2022-06-03] MEDS ORDERED: PHENYLEPHRINE/NS 1,000 MCG/10 ML SYRINGE (OR USE) IV ONE (11:41)
[2022-06-03] MEDS ORDERED: ePHEDrine SULFATE 50 MG/1 ML INJ ONE (11:48)
[2022-06-03] MEDS ORDERED: LACTATED RINGERS 1,000 ML ONE (12:05)
[2022-06-03] MEDS ORDERED: SODIUM CHLORIDE 0.9% 100 ML ONE (12:05)
[2022-06-03] MEDS ORDERED: NalbUPHINE 10 MG/1 ML INJ IV PRN (13:00)
[2022-06-03] MEDS ORDERED: ACETAMINOPHEN 325 MG TAB PO PRN ×2 (13:00→14:39)
[2022-06-03] MEDS ORDERED: fentaNYL 100 MCG/2 ML INJ IV PRN (13:00)
[2022-06-03] MEDS ORDERED: dexAMETHasone 20 MG/5 ML VIAL ONE (13:23)
[2022-06-03] MEDS ORDERED: AMPICILLIN 2 GM in SODIUM CHLORIDE 0.9% 50 ML IV ONE (14:25)
[2022-06-03] MEDS ORDERED: IBUPROFEN 600 MG TAB PO PRN (14:39)
[2022-06-03] MEDS ORDERED: MAGNESIUM HYDROXIDE (MOM) ORAL LIQD UDC PO PRN (14:39)
[2022-06-03] MEDS ORDERED: WITCH HAZEL/ GLYCERIN PAD TP PRN (14:39)
[2022-06-03] MEDS ORDERED: NALOXONE 0.4 MG/1 ML INJ IV PRN (14:39)
[2022-06-03] MEDS ORDERED: LANOLIN/ZINC/DIMETHICONE (LANSINOH) 7 GM TP PRN (14:39)
[2022-06-03] MEDS ORDERED: KETOROLAC 30 MG/1 ML INJ IV PRN (14:39)
[2022-06-03] MEDS ORDERED: MORPHINE 4 MG/1 ML INJ IV PRN (14:39)
[2022-06-03] MEDS ORDERED: MORPHINE 2 MG/1 ML INJ IV PRN (14:39)
[2022-06-03] MEDS ORDERED: ONDANSETRON 4 MG/2 ML INJ IV PRN (14:39)
[2022-06-03] MEDS ORDERED: SENNOSIDES 8.6 MG TAB PO PRN (14:39)
[2022-06-03] MEDS ORDERED: PROMETHAZINE 25 MG RECT SUPP PR PRN (14:39)
--- NOTE | 2022-06-03 14:59 | Operative Report ---
Operative Report Operative Report: Date of surgery: June 03, 2022 Preoperative diagnoses: 39 weeks 1 day gestation, for previous s ections, active labor, peritoneal adhesions, request for tubal sterilization Postoperative diagnoses: The same. Operation: Lower segment transverse delivery, bilateral salpingectomy, lysis of adhesions Surgeon:Tashia Robledo MD Excavating Machine Operator: Verónica Guevara CRNA Anesthesia: Spinal block Estimated blood loss: 300 mL Complications: None Findings: Live baby girl, Apgars 8/9, vertex. The ovaries and fallopian tubes were grossly normal. The inferior aspects of the greater omentum were draped and adherent over the anterior surface of the uterus as well as the anterior parietal peritoneum in the left lower abdomen. Procedure in detail: The patient was taken to the operating room and given a spinal block. Patient was placed in the straight supine position and a Bletran catheter was inserted. The patient was prepped in the abdomen. The drapes were placed. A timeout was done. With the go ahead from the hospitality workers, a Pfannenstiel incision was made. This incision was carried across the subcutaneous layer to the fascia which was also divided transversely. The recti abdominis muscle flaps were stripped from the fascia using a combination of blunt and sharp dissections. The muscles were in the midline to gain access to the anterior parietal peritoneum which was divided after excluding any underlying viscera. The access to the peritoneal cavity was then widened by manual stretching. The bladder blade was applied. The utero vesicle peritoneal flap was divided transversely allowing the bladder to be displaced caudally. The uterine incision was placed in the lower segment transversely. The uterine incision was carried to the decidual layer. The uterine incision was extended on both sides using the bandage scissors. The amniotic sac was ruptured with clear fluid. The head was lifted out of the false maternal pelvis and delivered through the incision using fundal pressure. The airways were bulb suctioned beginning with the mouth. Continuing fundal pressure combined with traction on the mandibular processes of the jaw delivered the rest of the baby. The umbilical cord was double clamped and divided. The baby was carefully transferred to the pediatric team. The placenta was manually removed from the uterine cavity. The uterine cavity was explored and was empty of any placental remnants. The uterine incision was repaired in 2 layers with #1 Vicryl. The surgical line on the uterus was hemostatic. The adhesions found within the pelvis were carefully defined and isolated into multiple pedicles, secured in between 2 pairs of Kellys, divided, and suture- ligated with 2-0 Vicryl. Each fallopian tube was excised from the fimbrial and to the cornual aspect after isolating and tying off pedicles of the mesosalpinx. Hemostasis around all surgical sites we once again checked and was satisfactory. Blood and clots were cleared from the peritoneal cavity. The anterior parietal peritoneum was repaired with #1 Vicryl. The fascia was repaired with #1 Vicryl. The subcutaneous layer was made hemostatic using the Bovie before the skin was closed subcuticularly with 4-0 Vicryl. There were no complications. The estimated blood loss was 300 mL. All sponges and instrument counts were correct. Patient was safely transferred to the recovery room.
[2022-06-03] MEDS: KETOROLAC 30 MG/1 ML INJ IV PRN ×2 (17:08→22:46)
[2022-06-03] MEDS ORDERED: D5W/LACTATED RINGERS 1,000 ML IV SCH (18:00)
[2022-06-04 03:42] LABS: Hematocrit 26.3 % (30.3-42.9); Hemoglobin 8.7 gm/dl (10.1-14.3)
[2022-06-04] MEDS: SIMETHICONE 80 MG CHEW TAB PO PRN (05:56)
[2022-06-04] MEDS: KETOROLAC 30 MG/1 ML INJ IV PRN (07:44)
[2022-06-04] MEDS: PRENATAL VIT27-FE FUMARATE-FOLIC ACID VIT TAB PO SCH (12:40)
[2022-06-04] MEDS: HYDROcodone/ACETAMINOPHEN 5-325 MG TAB PO PRN ×2 (12:41→17:55)
--- NOTE | 2022-06-04 14:56 | Progress Note ---
Assessment and Plan - Patient Problems (1) 39 weeks gestation of Current Visit: Yes Status: Resolved (2) Previous delivery affecting Current Visit: Yes Status: Resolved (3) Peritoneal adhesions Current Visit: Yes Status: Resolved (4) Request for sterilization Current Visit: Yes Status: Resolved (5) Status post delivery Current Visit: Yes Status: Acute Plan to address problem: Stable. Subjective - Subjective Date of service: 06/04/22 Principal diagnosis: Status post day 1. Interval history: . 39+1 wks, BRITNEY 06/09/22. x4 prior cesareans. 06/04/22 C/S, Bilateral salpingectomy, adhesiolysis were performed yesterday. Patient reports: appetite normal, voiding normally, pain well controlled, ambulating normally [place]: doing well Objective - Vital Signs Latest vital signs: Vital Signs Temp Pulse Resp BP BP Pulse Ox Pulse Ox 06/04/22 12:41 20 06/04/22 12:14 98.2 F 69 20 102/62 99 06/04/22 08:44 97.5 F L 80 16 94/62 99 06/04/22 07:50 98 06/04/22 07:44 20 06/04/22 05:36 98.4 F 77 16 102/78 06/04/22 01:40 98.6 F 77 16 112/78 06/03/22 20:10 97.5 F L 66 18 103/63 99 98 06/03/22 15:50 97.9 F 86 18 117/63 98 98 Intake and Output 06/03/22 06/04/22 06/04/22 23:59 07:59 15:59 Intake Total 940 Output Total 1500 1400 Balance -1500 -1400 940 Intake: Oral 700 Intake, Free Water 240 Output: Urine 1500 1400 Indwelling Catheter 1500 Void 1400 Other: Total, Intake Amount 700 Total, Output Amount 600 800 # Voids Void 1 2 - Exam Lungs: Present: Normal air movement Abdomen: Present: normal appearance, soft, normal bowel sounds Extremities: Present: normal Deep Tendon Reflex Grade: Dull/Diminished +1 Incision: Present: normal, dry, intact - Labs Labs: Abnormal lab results 06/04/22 Range/Units 03:16 Hgb 8.7 L (10.1-14.3) gm/dl Hct 26.3 L (30.3-42.9) %
[2022-06-05] MEDS: HYDROcodone/ACETAMINOPHEN 5-325 MG TAB PO PRN ×3 (00:06→10:50)
[2022-06-05] MEDS: SIMETHICONE 80 MG CHEW TAB PO PRN (00:48)
[2022-06-05] MEDS: PRENATAL VIT27-FE FUMARATE-FOLIC ACID VIT TAB PO SCH (10:50)
--- NOTE | 2022-06-05 11:57 | Progress Note ---
Assessment and Plan - Patient Problems (1) 39 weeks gestation of Current Visit: Yes Status: Resolved (2) Previous delivery affecting Current Visit: Yes Status: Resolved (3) Peritoneal adhesions Current Visit: Yes Status: Resolved (4) Request for sterilization Current Visit: Yes Status: Resolved (5) Status post delivery Current Visit: Yes Status: Acute Plan to address problem: stable. Subjective - Subjective Date of service: 06/05/22 Principal diagnosis: Status post day 2. Interval history: . 39+1 wks, BRITNEY 06/09/22. x4 prior cesareans. 06/04/22 C/S, Bilateral salpingectomy, adhesiolysis were performed yesterday. 06/05/22 No complaints. Patient reports: appetite normal, voiding normally, pain well controlled, ambulating normally [place]: doing well Objective - Vital Signs Latest vital signs: Vital Signs Temp Pulse Resp BP Pulse Ox Pulse Ox 06/05/22 08:00 97.3 F L 74 18 100/65 98 06/05/22 00:45 97.4 F L 73 18 108/62 100 06/04/22 22:40 98 06/04/22 17:55 20 06/04/22 16:00 97.5 F L 71 24 101/58 98 06/04/22 12:41 20 06/04/22 12:14 98.2 F 69 20 102/62 99 Intake and Output 06/04/22 06/05/22 06/05/22 23:59 07:59 15:59 Intake Total 480 Balance 480 Intake: Oral 240 Intake, Free Water 240 Other: Total, Intake Amount 240 # Voids Void 1 - Exam Breasts: Present: deferred Lungs: Present: Normal air movement Abdomen: Present: normal appearance, soft, normal bowel sounds Uterus: Present: normal, firm Extremities: Present: normal Deep Tendon Reflex Grade: Normal +2 Incision: Present: normal, dry, intact
--- NOTE | 2022-06-05 12:00 | Discharge Summary ---
Providers - Providers Date of Admission: 06/03/22 12:26 Date of discharge: 06/05/22 Attending physician: LANDRY IBARRA MD Primary care physician: LANDRY IBARRA MD Hospitalization Reason for admission: active labor, section Delivery: Procedure: section, bilateral tubal ligation Episiotomy: none Laceration: none Incision: normal, dry, intact Other procedures: none complications: none Discharge diagnosis: IUP at term delivered baby: female Condition at discharge: Good Disposition: 01 HOME / SELF CARE / HOMELESS - Discharge Diagnoses (1) 39 weeks gestation of Status: Resolved (2) Previous delivery affecting Status: Resolved (3) Peritoneal adhesions Status: Resolved (4) Request for sterilization Status: Resolved (5) Status post delivery Status: Acute Plan - Provider Discharge Summary Activity: routine, no sex for 6 weeks, no heavy lifting 4 weeks, no strenuous exercise Diet: routine Instructions: routine Additional instructions: [] Smoking cessation referral if applicable(refer to patient education folder for contact #) [] Refer to [facility] Booklet Call your doctor immediately for: * Fever > 100.5 * Heavy vaginal bleeding ( >1 pad per hour) * Severe persistent headache * Shortness of breath * Reddened, hot, painful area to leg or breast * Drainage or odor from incision. * Keep incision clean and dry at all times and follow doctor's instructions regarding bathing/showering - Follow up plan Follow up: LANDRY IBARRA MD [Primary Care Provider] - 7 Days
[2022-06-05 14:55] VITALS: BP 110/76
== END 2022-06-05 15:05 | disposition home or self-care (01) | DRG 785 ==
LOC: TRG 08:34 → APU 08:35 → LD 08:47 → TRG 12:30 → OB 16:15
PROVIDERS: ADMIT Obstetrics & Gynecology; ATTEND Obstetrics & Gynecology
PROC: 0UB70ZZ Excision of Bilateral Fallopian Tubes, Open Approach (ICD-10-PCS; principal; 2022-06-03)
PROC: 10D00Z1 Extraction of Products of Conception, Low, Open Approach (ICD-10-PCS; 2022-06-03)
DX: O34.211 Maternal care for low transverse scar from previous cesarean delivery (principal); Z3A.39 39 weeks gestation of pregnancy; K66.0 Peritoneal adhesions (postprocedural) (postinfection); Z37.0 Single live birth; Z30.2 Encounter for sterilization; Z20.822 Contact with and (suspected) exposure to COVID-19
CPT/HCPCS: 36415; 85014; 85018; 85025; 86592; 86850; 86900; 86901; 88302; G0378; J3490; J7060; J7121; J0290; J1100; J1885; J2270; J2370; J2590; J2765; J3105; J7120; U0003